=== PATIENT | female | born 1995 | race Caucasian/White ===

== ENCOUNTER 2020-08-14 11:54 | Emergency (ER) | payer MEDICAID, SELFPAY ==
[2020-08-14 11:55] VITALS: BP 117/53; PULSE 98; RESP 18; TEMP 36.7; O2SAT 98; BMI 37.9
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
[2020-08-14] MEDS: Ketorolac Tromethamine 30 MG/ML VIAL IM (13:32)
[2020-08-14] MEDS: Cyclobenzaprine HCl 10 MG TABLET PO (13:32)
== END 2020-08-14 13:51 | disposition home or self-care (01) ==
PROVIDERS: Emergency Provider Emergency Medicine
DX: S39.012A Strain of muscle, fascia and tendon of lower back, initial encounter (principal); X50.1XXA Overexertion from prolonged static or awkward postures, initial encounter; Y93.84 Activity, sleeping; Y92.013 Bedroom of single-family (private) house as the place of occurrence of the external cause; Y99.9 Unspecified external cause status
CPT/HCPCS: 96372; 99283; 99284; J1885

== ENCOUNTER 2020-09-25 14:00 | Outpatient (RCR) | payer MEDICAID, SELFPAY | END 2020-10-07 15:40 | disposition other institution (70) | LOC: HO.PT 14:00 | PROVIDERS: PCP Emergency Medicine; Visit Provider Emergency Medicine | DX: S39.012D Strain of muscle, fascia and tendon of lower back, subsequent encounter (principal); V89.2XXD Person injured in unspecified motor-vehicle accident, traffic, subsequent encounter | CPT/HCPCS: 97110; 97140; 97161 ==

== ENCOUNTER 2020-11-18 16:57 | Outpatient (REF) | payer MEDICAID, SELFPAY ==
--- NOTE | ~2020-11-18 | MR_ITS ---
EXAMINATION: MR LUMBAR SPINE WITHOUT CONTRAST CLINICAL INFORMATION: Low back pain. COMPARISON: X-ray dated 11/18/2020. TECHNIQUE: MRI of the lumbar spine was obtained using routine sequences without contrast. FINDINGS: VERTEBRAL BODIES AND PARASPINAL STRUCTURES: The marrow signal is within normal limits. There is a mild retrosubluxation at the L4-L5 and at the L5-S1 levels. No marrow or soft tissue edema visible. Mild leftward lumbar spinal curvature noted. The paraspinal soft tissues are unremarkable. The imaged bony pelvis appears normal. CONUS MEDULLARIS AND CAUDA EQUINA: Normal, terminating at the level of L1. No lower cord signal abnormality is seen. The cauda equina nerve roots are normal. SPINAL LEVELS: L1-L2, L2-L3, and L3-L4: Well-hydrated normal appearance of the discs without central canal stenosis or foraminal narrowing. L4-L5: Mild retrosubluxation and disc degeneration with a broad-based posterior disc bulge and superimposed small central disc protrusion mildly impressing upon the ventral thecal sac and encroaching upon the subarticular zones at the site of the traversing L5 nerve roots. Mild facet arthropathy without central canal stenosis or foraminal narrowing. L5-S1: Chronic fatty marrow degenerative endplate changes lateralized to the left side. Mild disc degeneration and retrosubluxation. Left paracentral disc protrusion results in mild mass effect upon the left S1 nerve root in the subarticular zone. Mild facet arthropathy. No central canal stenosis. Bulging disc and osseous spurring result in mild to moderate left foraminal encroachment. MR/MR lumbar spine wo con IMPRESSION: Mild retrosubluxation and disc degeneration at L4-L5 with a posterior disc bulge and superimposed central disc protrusion mildly impressing upon the ventral thecal sac. Disc material in combination with facet arthropathy encroach upon the subarticular zones with mild mass effect upon both L5 nerve roots. Retrosubluxation and mild disc degeneration at L5-S1 with a left paracentral to left subarticular zone disc protrusion resulting in mild mass effect upon the left S1 nerve root. Mild facet degeneration. Bulging disc and osseous spurring with mild to moderate left foraminal encroachment.
--- NOTE | ~2020-11-18 | XR_ITS ---
EXAMINATION: XR LUMBOSACRAL SPINE WITH OBLIQUES CLINICAL INFORMATION: Low back pain. COMPARISON: None. TECHNIQUE: AP, both oblique, and lateral views of the lumbar spine. Lateral view of the lumbosacral junction. FINDINGS: There is maintained lumbar lordosis. The vertebral heights, alignment and disc heights are normal. No visible acute fracture, dislocation or subluxation seen. No lytic process. The paravertebral soft tissues are normal. On oblique views, there is no pars defect or listhesis. XR/XR lumbar spine 4V min IMPRESSION: Unremarkable lumbar spine exam.
== END 2020-11-18 16:58 | disposition home or self-care (01) ==
LOC: HO.MRI 16:57
PROVIDERS: PCP Family Medicine; Visit Provider Family Medicine
DX: G89.29 Other chronic pain (principal); M54.5 Low back pain
CPT/HCPCS: 72110; 72148

== ENCOUNTER 2021-07-01 13:03 | Outpatient (REF) | payer MEDICAID, SELFPAY | END 2021-07-01 13:04 | disposition home or self-care (01) | LOC: HO.LAB 13:03 | PROVIDERS: PCP Family Medicine; Visit Provider Internal Medicine | DX: Z20.822 Contact with and (suspected) exposure to COVID-19 (principal) | CPT/HCPCS: C9803; U0003; U0005 ==

== ENCOUNTER 2021-10-02 10:19 | Outpatient (REF) | payer MEDICAID, SELFPAY ==
--- NOTE | ~2021-10-02 | XR_ITS ---
EXAMINATION: XR ANKLE, RIGHT CLINICAL INFORMATION: Sprain. COMPARISON: None TECHNIQUE: AP, lateral, and mortise views of the right ankle. FINDINGS: There is soft tissue swelling. There is no evidence for an acute fracture or dislocation. XR/XR ankle RT min 3V IMPRESSION: Positive soft tissue swelling. No acute fracture or dislocation.
== END 2021-10-02 10:20 | disposition home or self-care (01) ==
LOC: HO.XRAY 10:19
PROVIDERS: Absent Provider Registered Nurse Community Health; PCP Registered Nurse Community Health; Visit Provider Internal Medicine
DX: S93.401D Sprain of unspecified ligament of right ankle, subsequent encounter (principal)
CPT/HCPCS: 73610

== ENCOUNTER 2023-12-21 12:14 | Outpatient (REF) | payer MEDICAID, SELFPAY ==
[2023-12-21 13:40] LABS: MANUAL DIFF FLAG NO
[2023-12-21 13:57] LABS: Basophils Percent Auto 0.7 % (0-2); Eosinophils Absolute Auto 0.2 X10*3/uL (0.0-0.4); Eosinophils Percent Auto 3.6 % (0-4); Hematocrit 37.7 % (37.0-47.0); Hemoglobin 12.6 g/dl (12.0-16.0); Imm Gran Abs Auto 0.02 X10*3/uL (0.00-0.03); Imm Gran Pct Auto 0.3 % (0.0-0.4); Lymphocytes Percent Auto 33.1 % (20-40); Mean Corpuscular HGB Conc 33.4 g/dl (31.0-35.0); Mean Corpuscular Volume 86.7 fL (80.0-98.0); Mean Platelet Volume 10.4 fL (9.4-12.3); Monocytes Absolute Auto 0.5 X10*3/uL (0.1-1.2); Monocytes Percent Auto 7.7 % (2-11); Neutrophils Absolute Auto 3.3 x10*3/uL (2.0-8.3); Neutrophils Percent Auto 54.6 % (45-73); Platelet Count 289 X10*3/uL (160-400); Red Blood Count 4.35 X10*6/uL (4.20-5.50); Red Cell Distribution Width 12.6 % (11.0-16.0); White Blood Count 6.1 X10*3/uL (4.8-10.8)
[2023-12-21 14:24] LABS: Estimated Average Glucose 103 mg/dL; Hemoglobin A1c % 5.2 % (<6.0)
[2023-12-21 16:44] LABS: Anion Gap 11 (12-20); Blood Urea Nitrogen 16 mg/dL (9-16); Calcium 9.6 mg/dL (8.4-10.2); Carbon Dioxide 26 mmol/L (22-29); Chloride 105 mmol/L (96-108); Estimated Glomerular Filt Rate > 60; Glucose Random 80 mg/dL (60-115); Potassium 4.2 mmol/L (3.3-5.1); Sodium 138 mmol/L (135-145)
[2023-12-21 16:47] LABS: Thyroid Stimulating Hormone 0.79 uIU/mL (0.32-4.0)
[2023-12-23 18:59] LABS: HPV mRNA E6/E7 rflx Not Detected (Not Detected)
[2023-12-24 00:48] LABS: C. trachomatis RNA TMA NOT DETECTED (NOT DETECTED); N. gonorrhoeae RNA TMA NOT DETECTED (NOT DETECTED); Trichomonas (NAAT) NOT DETECTED (NOT DETECTED)
== END 2023-12-21 12:15 | disposition home or self-care (01) ==
LOC: HO.HHCL 12:14
PROVIDERS: Visit Provider Nurse Practitioner Family
DX: Z01.419 Encounter for gynecological examination (general) (routine) without abnormal findings (principal); N92.0 Excessive and frequent menstruation with regular cycle
CPT/HCPCS: 36415; 80048; 83036; 84443; 85025; 87491; 87591; 87624; 87661; 88142

== ENCOUNTER 2023-12-24 13:05 | Outpatient (REF) | payer MEDICAID, SELFPAY ==
--- NOTE | ~2023-12-24 | US_ITS ---
EXAMINATION: US PELVIS CLINICAL INFORMATION: Irregular periods, last menstrual period 12/03/2023. COMPARISON: 07/17/2015. TECHNIQUE: Ultrasound of the pelvis is performed using both transabdominal and transvaginal transducers along with Doppler. Transvaginal imaging is performed due to inadequate visualization transabdominally. FINDINGS: The uterus measures 9.5 x 4.3 x 4.8 cm and is anteverted. No discrete fibroids appreciated. No significant free fluid. Endometrium is echogenic with thickness of 13 mm. Right ovary measures 3.2 x 2.4 x 2.1 cm, volume 8.2 mL. Left ovary measures 2.3 x 1.6 x 1.6 cm, volume 3.1 mL. Bilateral ovaries are unremarkable. US/US pelvic and transvaginal IMPRESSION: 1. Endometrium is echogenic with thickness of 13 mm. 2. No discrete fibroids. 3. Unremarkable bilateral ovaries. 4. No significant free fluid...
== END 2023-12-24 13:06 | disposition home or self-care (01) ==
LOC: HO.US 13:05
PROVIDERS: PCP Nurse Practitioner Family; Visit Provider Nurse Practitioner Family
DX: N92.1 Excessive and frequent menstruation with irregular cycle (principal)
CPT/HCPCS: 76830; 76856